=== PATIENT | female | born 1965 | race Hispanic/Latino ===

== ENCOUNTER 2017-05-04 16:51 | Emergency (ER) | payer OTHER ==
[~2017-05-04] VITALS: Ht 157.5 cm; Wt 55.0 kg
[~2017-05-04 16:51] MED LIST: AMOXICILLIN500 MG PO; NO HOME MEDS; ULTRAM50 M1 PO
[2017-05-04] MEDS ORDERED: ACULAR LS0.4 % OS (17:27)
[2017-05-04] MEDS ORDERED: ERYTHROMYCIN O3.5 GM OS (17:27)
[2017-05-04 17:44] VITALS: BP 129/81
== END 2017-05-04 17:44 | disposition home or self-care (01) | DRG 125 ==
LOC: ED 16:51
DX: H11.32 Conjunctival hemorrhage, left eye (principal); S05.02XA Injury of conjunctiva and corneal abrasion without foreign body, left eye, initial encounter; W22.09XA Striking against other stationary object, initial encounter; Y93.H9 Activity, other involving exterior property and land maintenance, building and construction; Y92.79 Other farm location as the place of occurrence of the external cause

== ENCOUNTER 2017-10-05 14:18 | Emergency (ER) | payer SELFPAY ==
[~2017-10-05] VITALS: Ht 157.5 cm; Wt 56.2 kg
[~2017-10-05 14:18] MED LIST changes: +ACULAR LS0.4 % OS; +ERYTHROMYCIN O3.5 GM OS
[2017-10-05] MEDS ORDERED: VALTREX1 GM PO (15:02)
[2017-10-05] MEDS ORDERED: PREDNISONE50 MG PO (15:02)
[2017-10-05 15:15] VITALS: BP 111/73
== END 2017-10-05 15:15 | disposition home or self-care (01) | DRG 74 ==
LOC: ED 14:18
DX: G51.0 Bell's palsy (principal)

== ENCOUNTER 2017-11-11 13:06 | Emergency (ER) | payer SELFPAY ==
[~2017-11-11] VITALS: Ht 157.5 cm; Wt 55.0 kg
[~2017-11-11 13:06] MED LIST changes: +PREDNISONE50 MG PO; +VALTREX1 GM PO
[2017-11-11] MEDS ORDERED: TAM75CAP PO (13:33)
[2017-11-11] MEDS ORDERED: ZPAK PO (13:33)
[2017-11-11 13:48] VITALS: BP 123/79
[2017-11-11 13:48] LABS: INFLUENZA A NONE DETECTED (NONE DETECT); INFLUENZA B NONE DETECTED (NONE DETECT)
== END 2017-11-11 13:45 | disposition home or self-care (01) | DRG 153 ==
LOC: ED 13:06
PROVIDERS: Family Medicine
DX: J11.1 Influenza due to unidentified influenza virus with other respiratory manifestations (principal); K40.90 Unilateral inguinal hernia, without obstruction or gangrene, not specified as recurrent

== ENCOUNTER 2024-09-19 22:45 | Emergency (ER) | payer SELFPAY ==
[~2024-09-19] VITALS: Ht 157.5 cm; Wt 55.5 kg
[~2024-09-19 22:45] MED LIST changes: +TAM75CAP PO; +ZPAK PO
[2024-09-19] MEDS ORDERED: KETOROLAC TROMETHAMINE 30 MG/ML SDV IV ONE (23:10)
[2024-09-19] MEDS ORDERED: SODIUM CHLORIDE 0.9% 1,000 ML IV ONE (23:10)
[2024-09-19] MEDS ORDERED: ACETAMINOPHEN 500 MG TAB PO ONE (23:10)
[2024-09-19 23:26] LABS: BASO% 0.2 % (0-3); EOS% 0.2 % (0-8); HEMATOCRIT 41.6 % (37.0-47.0); IMMATURE GRANULOCYTES 0.1 % (0.0-5.0); LYMPH% 11.5 % (15-41); MEAN CELL VOLUME 98.6 fL CALC (80.0-100.0); MEAN CORPUSCULAR HGB 33.2 pG CALC (26.0-32.0); MEAN CORPUSCULAR HGB CONC 33.7 g/dL CAL (32.0-36.0); MONO% 4.5 % (2-13); NEUT# 9.49 thou/uL (2.00-7.15); NEUT% 83.5 % (42-76); RED BLOOD COUNT 4.22 mill/uL (4.20-5.60); RED CELL DISTRI WIDTH 11.8 % (11.5-15.5)
[2024-09-19 23:35] LABS: ALBUMIN 4.2 g/dL (3.2-5.0); BILIRUBIN, TOTAL 0.7 mg/dL (0.02-1.3); CREATININE 0.6 mg/dL (0.5-1.0); MAGNESIUM 1.9 mg/dL (1.6-2.3); TOTAL PROTEIN 7.7 g/dL (6.3-8.2)
[2024-09-20 01:04] LABS: URINE BILIRUBIN - DIPSTICK Negative (NEGATIVE); URINE BLOOD DIPSTICK Small (NEGATIVE); URINE GLUCOSE - DIPSTICK Negative (NEGATIVE); URINE KETONE Negative (NEGATIVE); URINE LEUK ESTERASE Negative (NEGATIVE); URINE NITRITE - DIPSTICK Negative (Negative); URINE SPECIFIC GRAVITY 1.025; URINE UROBILINOGEN - DIPSTICK 0.2 E.U./dL (0.2)
[2024-09-20 01:07] LABS: URINE COLOR Yellow
[2024-09-20 01:08] LABS: URINE PROTEIN - DIPSTICK Negative (NEG-TRACE)
[2024-09-20 01:12] LABS: URINE BACTERIA FEW hpf; URINE EPITHELIAL CELLS FEW EPI/hpf (0-FEW); URINE WBC 0-2 WBC/hpf (0-5)
[2024-09-20] MEDS ORDERED: DOXYCYCLINE HYCLATE 100 MG/CAP PO ONE (01:30)
[2024-09-20] MEDS ORDERED: VIBRAMYCIN100 M2 PO (01:31)
[2024-09-20] MEDS ORDERED: VOLTAREN - GENE75 MG PO (01:31)
[2024-09-20 01:54] VITALS: BP 105/58
== END 2024-09-20 02:04 | disposition home or self-care (01) | DRG 195 ==
LOC: ED 22:45
PROVIDERS: Family Medicine
DX: J18.9 Pneumonia, unspecified organism (principal); Z20.822 Contact with and (suspected) exposure to COVID-19